=== PATIENT | female | born 1985 | race Caucasian/White ===

== ENCOUNTER → 2020-01-20 | Outpatient (CLI) | payer BC ==
[~2020-01-20] MED LIST: ACHD5005 PO; ASCO500C15 PO; BC PILL PO; CALC500T7 PO; DCS100C PO; DOCU100C37 PO; FERR325T18 PO; HYDR-4226 PO; HYDR-4227 PO; IBP600T1 PO; IBUP-1773 PO; LRT10T PO; MULT-1136 PO; NORG1TAB14 PO; ONDA4TAB11 PO; ONDN4T PO; PREN-115 PO
--- NOTE | 2020-01-20 08:41 | Diagnostic Imaging Report ---
PROCEDURE: US Gallbladder. TECHNIQUE: Multiple real-time grayscale images were obtained over the right upper quadrant in various projections. INDICATION: Right upper quadrant pain. FINDINGS: The liver is slightly enlarged at 18.3 cm. No discrete liver mass is detected. The portal vein is patent and shows normal direction of flow. The gallbladder does appear to be contracted. There are multiple stones within the gallbladder. No wall thickening or biliary ductal dilatation is identified. Pancreas unremarkable. Aorta is nonaneurysmal. IVC is patent. The right kidney is without calculi or hydronephrosis. There is no ascites. IMPRESSION: 1. Mild hepatomegaly. 2. Cholelithiasis without evidence of acute cholecystitis. Dictated by: Dictated on workstation # [id number]
== END ==
LOC: RAD 07:35
PROVIDERS: ATTEND Nurse Practitioner Family
DX: K80.20 Calculus of gallbladder without cholecystitis without obstruction (principal); R16.0 Hepatomegaly, not elsewhere classified
CPT/HCPCS: 76705

== ENCOUNTER 2020-01-21 14:19 | Emergency (ER) | payer BC ==
[~2020-01-21] VITALS: Ht 162.6 cm; Wt 75.0 kg
[~2020-01-21 14:19] MED LIST changes: -HYDR-4226 PO; -HYDR-4227 PO; -MULT-1136 PO; -NORG1TAB14 PO; -ONDA4TAB11 PO; -ONDN4T PO
[2020-01-21] MEDS ORDERED: LACTATED RINGERS 1,000 ML IV STA (15:08)
[2020-01-21] MEDS ORDERED: KETOROLAC 30 MG/ML VIAL IVP STA (15:08)
[2020-01-21] MEDS ORDERED: fentaNYL INJECTION 100 MCG/2 ML AMP IVP STA ×2 (15:08→15:58)
[2020-01-21] MEDS ORDERED: ONDANSETRON 4 MG/2 ML (SDV) Z0FRAN IVP ONE ×2 (15:15→16:30)
--- NOTE | 2020-01-21 15:16 | ED General ---
General Chief Complaint: General Problems/Pain Stated Complaint: DIZZY / N/V HEADACHE Source of Information: Patient Exam Limitations: No Limitations History of Present Illness Date Seen by Provider: January 21, 2020 Time Seen by Provider: 15:02 Initial Comments Here with report of epigastric abdominal pain associated with nausea and vomi ting as well as global headache. Has chills. Diagnosed yesterday with gallstones via ultrasound due to the abdominal pain that she's been getting recently. Unable to get into the surgeon yesterday and is being set up with a surgeon on Thursday potentially. States that the pain worsened today and was associated with nausea and vomiting and overall she feels poor. Headache came on after. Has been unable to take anything for the pain due to the vomiting. Currently on her menstrual period. Timing/Duration: 2-3 Days, Getting Worse Severity: Moderate Associated Systoms: No Chest Pain, No Cough; Headaches, Nausea/Vomiting; No Shortness of Air; Weakness Allergies and Home Medications Allergies Coded Allergies: Sulfa (Sulfonamides) (Verified Allergy, Unknown, 12/15/06) Home Medications Ascorbic Acid 500 Mg Capsule.er, 500 MG PO DAILY, (Reported) Calcium Carbonate 200 Mg Tab.chew, 200 MG PO NEEDED, (Reported) Docusate Sodium 100 Mg Capsule, 100 MG PO BID PRN for CONSTIPATION Prescribed by: ERIN RAMIREZ on 06/14/15 1041 Ferrous Sulfate 325 Mg Tablet, 325 MG PO DAILY Prescribed by: ERIN RAMIREZ on 06/14/15 1041 Hydrocodone Bit/Acetaminophen 1 Each Tablet, 1 TAB PO Q4H PRN for PAIN Prescribed by: ERIN RAMIREZ on 06/14/15 1041 Hydrocodone/Acetaminophen 1 Each Tablet, 1 TAB PO Q6H PRN for PAIN-MODERATE (5- 7) Prescribed by: CLARA BRONSON on 01/21/20 1615 Ibuprofen 600 Mg Tablet, 600 MG PO Q6H Prescribed by: ERIN RAMIREZ on 06/14/15 1041 Ondansetron 4 Mg Tab.rapdis, 4 MG PO Q6H PRN for NAUSEA/VOMITING Prescribed by: CLARA BRONSON on 01/21/20 1614 Vit #108/Iron/Fa 1 Each Tablet, 1 EACH PO DAILY, (Reported) Patient Home Medication List Home Medication List Reviewed: Yes Review of Systems Review of Systems Constitutional: see HPI, chills; No fever EENTM: no symptoms reported Respiratory: No cough, No short of breath Cardiovascular: No chest pain, No edema Gastrointestinal: RUQ, abdominal pain, nausea, vomiting Genitourinary: no symptoms reported LMP: January 21, 2020 Musculoskeletal: no symptoms reported Skin: no symptoms reported Psychiatric/Neurological: See HPI, Headache; Denies Weakness All Other Systems Reviewed Negative Unless Noted: Yes Past Fxsgnxo-Bcfmxn-Dauvvh Hx Past Med/Social Hx: Reviewed Nursing Past Med/Soc Hx Patient Social History Alcohol Use: Denies Use Recreational Drug Use: No Smoking Status: Never a Smoker Recent Foreign Travel: No Contact w/Someone Who Travel: No Immunizations Up To Date Tetanus Booster (TDap): Less than 5yrs PED Vaccines UTD: Yes Date of Influenza Vaccine: May 29, 2015 Past Medical History Surgeries: Yes (D&C) Appendectomy, Orthopedic Respiratory: No Cardiac: No Neurological: Yes Headaches /Migraines Reproductive Disorders: Yes (endometriosis) Female Reproductive Disorders: Endometriosis Sexually Transmitted Disease: No HIV/AIDS: No Genitourinary: No Gastrointestinal: No Endocrine: No HEENT: No Cancer: No Psychosocial: No Adverse Reaction/Blood Tranf: No Family Medical History Reviewed Nursing Family Hx Arthritis 19 MOTHER Hypertension 19 MOTHER Cancer Physical Exam Vital Signs Vital Signs - First Documented 01/21/20 14:52 Temp 36.6 Pulse 79 Resp 18 B/P (MAP) 143/86 (105) Pulse Ox 100 O2 Delivery Room Air Capillary Refill : Height, Weight, BMI Height: 5'4.00" Weight: 185lbs. oz. 83.258246hl; BMI Method: General Appearance: WD/WN, Mild Distress HEENT: PERRL/EOMI, TMs Normal, Pharynx Normal Neck: Non Tender, Supple Respiratory: Lungs Clear, Normal Breath Sounds Cardiovascular: No Murmur, Tachycardia Gastrointestinal: Soft, Tenderness (epigastric and right upper quadrant) Back: Normal Inspection, No CVA Tenderness, No Vertebral Tenderness Extremity: Normal Range of Motion, Non Tender Neurologic/Psychiatric: Alert, Oriented x3 Skin: Normal Color, Warm/Dry Progress/Results/Core Measures Suspected Sepsis SIRS Temperature: Pulse: Respiratory Rate: Laboratory Tests 01/21/20 15:00: White Blood Count 6.1 Blood Pressure / Mean: Laboratory Tests 01/21/20 15:00: Creatinine 0.78, Platelet Count 247, Total Bilirubin 0.4 Results/Orders Lab Results Laboratory Tests Test 01/21/20 15:00 01/21/20 16:15 01/21/20 16:55 Range/Units White Blood Count 6.1 4.3-11.0 10^3/uL Red Blood Count 4.46 4.35-5.85 10^6/uL Hemoglobin 14.7 11.5-16.0 G/DL Hematocrit 43 35-52 % Mean Corpuscular Volume 96 80-99 FL Mean Corpuscular Hemoglobin 33 25-34 PG Mean Corpuscular Hemoglobin Concent 34 32-36 G/DL Red Cell Distribution Width 11.6 10.0-14.5 % Platelet Count 247 130-400 10^3/uL Mean Platelet Volume 10.0 7.4-10.4 FL Neutrophils (%) (Auto) 69 42-75 % Lymphocytes (%) (Auto) 24 12-44 % Monocytes (%) (Auto) 6 0-12 % Eosinophils (%) (Auto) 1 0-10 % Basophils (%) (Auto) 0 0-10 % Neutrophils # (Auto) 4.2 1.8-7.8 X 10^3 Lymphocytes # (Auto) 1.5 1.0-4.0 X 10^3 Monocytes # (Auto) 0.3 0.0-1.0 X 10^3 Eosinophils # (Auto) 0.1 0.0-0.3 10^3/uL Basophils # (Auto) 0.0 0.0-0.1 10^3/uL Sodium Level 139 135-145 MMOL/L Potassium Level 3.7 3.6-5.0 MMOL/L Chloride Level 105 98-107 MMOL/L Carbon Dioxide Level 25 21-32 MMOL/L Anion Gap 9 5-14 MMOL/L Blood Urea Nitrogen 8 7-18 MG/DL Creatinine 0.78 0.60-1.30 MG/DL Estimat Glomerular Filtration Rate > 60 BUN/Creatinine Ratio 10 Glucose Level 96 70-105 MG/DL Calcium Level 9.2 8.5-10.1 MG/DL Corrected Calcium 9.0 8.5-10.1 MG/DL Total Bilirubin 0.4 0.1-1.0 MG/DL Aspartate Amino Transf (AST/SGOT) 24 5-34 U/L Alanine Aminotransferase (ALT/SGPT) 32 0-55 U/L Alkaline Phosphatase 36 L 40-136 U/L C-Reactive Protein High Sensitivity 0.39 0.00-0.50 MG/DL Total Protein 7.6 6.4-8.2 GM/DL Albumin 4.2 3.2-4.5 GM/DL Serum Test, Qualitative NEGATIVE NEGATIVE Urine Color YELLOW Urine Clarity CLEAR Urine pH 7.0 5-9 Urine Specific [place] <=1.005 1.016-1.022 Urine Protein NEGATIVE NEGATIVE Urine Glucose (UA) NEGATIVE NEGATIVE Urine Ketones NEGATIVE NEGATIVE Urine Nitrite NEGATIVE NEGATIVE Urine Bilirubin NEGATIVE NEGATIVE Urine Urobilinogen 0.2 < = 1.0 MG/DL Urine Leukocyte Esterase NEGATIVE NEGATIVE Urine RBC (Auto) 1+ H NEGATIVE Urine RBC NONE /HPF Urine WBC NONE /HPF Urine Squamous Epithelial Cells 0-2 /HPF Urine Crystals NONE /LPF Urine Bacteria NEGATIVE /HPF Urine Casts NONE /LPF Urine Mucus NEGATIVE /LPF Urine Culture Indicated NO My Orders Orders - CLARA BRONSON MD Cbc With Automated Diff (01/21/20 15:08) Comprehensive Metabolic Panel (01/21/20 15:08) Hs C Reactive Protein (01/21/20 15:08) Ua Culture If Indicated (01/21/20 15:08) Ondansetron Injection (Zofran Injectio (01/21/20 15:15) Lactated Ringers (Lr 1000 Ml Iv Solution (01/21/20 15:08) Ed Iv/Invasive Line Start (01/21/20 15:08) Fentanyl Injection (Sublimaze Injection (01/21/20 15:08) Ketorolac Injection (Toradol Injection) (01/21/20 15:08) Hcg,Qualitative Serum (01/21/20 15:10) Fentanyl Injection (Sublimaze Injection (01/21/20 15:58) Coronavirus Sars-Cov-2 So 2018 (01/21/20 16:11) Ondansetron Injection (Zofran Injectio (01/21/20 16:30) Promethazine Injection (Phenergan Injec (01/21/20 16:29) Medications Given in ED Current Medications Medications Dose Ordered Sig/Fabby Route Start Time Stop Time Status Last Admin Dose Admin Ondansetron HCl 4 mg ONCE ONCE IVP 01/21/20 15:15 01/21/20 15:16 DC 01/21/20 15:19 4 MG Ondansetron HCl 4 mg ONCE ONCE IVP 01/21/20 16:30 01/21/20 16:31 DC 01/21/20 16:27 4 MG Vital Signs/I&O 01/21/20 14:52 Temp 36.6 Pulse 79 Resp 18 B/P (MAP) 143/86 (105) Pulse Ox 100 O2 Delivery Room Air Capillary Refill : Progress Note : Progress Note Seen and evaluated. IV, labs, UA, LR 1 L bolus, Zofran 4 mg IV, Toradol 30 mg IV, fentanyl 50 g IV ordered. Reviewed ultrasound from yesterday which is copied into the note for information purposes. Monitor patient. 1615: Patient labs reviewed. No significant acute findings currently. She is doing better. Fentanyl 2 g IV repeated for mild continuation of pain. I did discuss the case with Dr. Mon. He would like to see her Thursday at 2 PM for surgery on Thursday. We went ahead and did the COVID screening swab in anticipation of surgery on Thursday. She has no findings or concerns of COVID-19 and no laboratory indication of COVID-19. 1834: Overall feeling a little better. She did get Phenergan 25 mg IV which has helped. She would just like to go home now if po ssible. She was instructed to return if there is any worsening. I still don't think she feels great but I think she is tolerable at this point. Discharged home with return precautions. Patient verbalize understanding instructions and agreement with plan. I did offer to talk to Dr. Mon again and she states that she would prefer to go home if there is nothing that was given to be done tonight. There would not be other than admission for comfort so we will discharge her home per her request. Diagnostic Imaging Diagonstic Imaging: Ultrasound Plain Films/CT/US/NM/MRI: other Comments Ultrasound done 01/20/20. Inserted for information purposes. [facility]. [place], [place] NAME: VEE PATTON [facility] REC#: [id number] PT STATUS: REG CLI : 1985 PHYSICIAN: TIASHA VILLA ADMIT DATE: 01/20/20/RAD Signed Date of Exam:01/20/20 US GALLBLADDER [id number] PROCEDURE: US Gallbladder. TECHNIQUE: Multiple real-time grayscale images were obtained over the right upper quadrant in various projections. INDICATION: Right upper quadrant pain. FINDINGS: The liver is slightly enlarged at 18.3 cm. No discrete liver mass is detected. The portal vein is patent and shows normal direction of flow. The gallbladder does appear to be contracted. There are multiple stones within the gallbladder. No wall thickening or biliary ductal dilatation is identified. Pancreas unremarkable. Aorta is nonaneurysmal. IVC is patent. The right kidney is without calculi or hydronephrosis. There is no ascites. IMPRESSION: 1. Mild hepatomegaly. 2. Cholelithiasis without evidence of acute cholecystitis. Dictated by: Dictated on workstation # [id number] Dict: 01/20/20 0833 Trans: 01/20/20 1554 [id number] Interpreted by: ERICA MAJOR MD Electronically signed by: ERICA MAJOR MD 01/20/20 1554 Departure Impression Primary Impression: Cholelithiasis Qualified Codes: K80.20 - Calculus of gallbladder without cholecystitis without obstruction Additional Impression: Migraine headache Qualified Codes: G43.009 - Migraine without aura, not intractable, without status migrainosus Disposition: 01 HOME, SELF-CARE Condition: Stable Departure-Patient Inst. Decision time for Depature: 18:36 Referrals: LIZZIE TALAVERA MD (PCP/Family) Primary Care Physician SANGEETA MON MD Patient Instructions: Gallstones (DC), Migraines (DC) Add. Discharge Instructions: All discharge instructions reviewed with patient and/or family. Voiced understanding. Continue home medications as previously prescribed but do not take your headache control medicine with the prescribed pain medicine as they both have narcotics in them. Clear liquid diet for the next 24-48 hours and then as per instructed by Dr. Mon. See him in his office on Thursday at 2 PM. A copy of your chart was sent to him. Follow-up with your DrChen on Thursday as needed. Return for worse pain, fever, persistent vomiting, weakness or other concerns as needed. Scripts Ondansetron (Ondansetron Odt) 4 Mg Tab.rapdis 4 MG PO Q6H PRN for NAUSEA/VOMITING, #12 TAB 0 Refills Prov: CLARA BRONSON MD 01/21/20 Hydrocodone/Acetaminophen (Hydrocodone/Acetaminophen 5 MG/325 MG TAB) 1 Each Tablet 1 TAB PO Q6H PRN for PAIN-MODERATE (5-7) MDD 10 TABS for 7 Days, #8 TAB 0 Refil ls Prov: CLARA BRONSON MD 01/21/20 Copy Copies To 1: SANGEETA MON MD Copies To 2: LIZZIE TALAVERA MD, TIMOTHY D MD January 21, 2020 15:16
[2020-01-21 15:17] LABS: BASOPHILS % (AUTO) 0 % (0-10); EOSINOPHILS # (AUTO) 0.1 10^3/uL (0.0-0.3); EOSINOPHILS % (AUTO) 1 % (0-10); HEMATOCRIT 43 % (35-52); HEMOGLOBIN 14.7 G/DL (11.5-16.0); LYMPHOCYTES # (AUTO) 1.5 X 10^3 (1.0-4.0); LYMPHOCYTES % (AUTO) 24 % (12-44); MEAN CORPUSCULAR HEMOGLOBIN 33 PG (25-34); MEAN CORPUSCULAR HGB CONC 34 G/DL (32-36); MEAN CORPUSCULAR VOLUME 96 FL (80-99); MONOCYTES # (AUTO) 0.3 X 10^3 (0.0-1.0); MONOCYTES % (AUTO) 6 % (0-12); NEUTROPHILS # (AUTO) 4.2 X 10^3 (1.8-7.8); NEUTROPHILS % (AUTO) 69 % (42-75); PLATELET COUNT 247 10^3/uL (130-400); RED CELL DISTRIBUTION WIDTH 11.6 % (10.0-14.5); WHITE BLOOD COUNT 6.1 10^3/uL (4.3-11.0)
[2020-01-21 15:40] LABS: ALBUMIN 4.2 GM/DL (3.2-4.5); CHLORIDE 105 MMOL/L (98-107); POTASSIUM 3.7 MMOL/L (3.6-5.0); SODIUM 139 MMOL/L (135-145)
[2020-01-21 15:41] LABS: CALCIUM 9.2 MG/DL (8.5-10.1)
[2020-01-21 15:43] LABS: GLUCOSE 96 MG/DL (70-105); TOTAL PROTEIN 7.6 GM/DL (6.4-8.2)
[2020-01-21 15:44] LABS: BILIRUBIN,TOTAL 0.4 MG/DL (0.1-1.0); CARBON DIOXIDE 25 MMOL/L (21-32)
[2020-01-21 15:46] LABS: ALKALINE PHOSPHATASE 36 U/L (40-136); CREATININE SERUM 0.78 MG/DL (0.60-1.30); GFR ESTIMATED > 60
[2020-01-21 15:47] LABS: BUN/CREATININE RATIO 10
[2020-01-21 15:49] LABS: ALANINE AMINOTRANSFERASE 32 U/L (0-55)
[2020-01-21] MEDS ORDERED: HYDR-4226 PO (16:14)
[2020-01-21] MEDS ORDERED: ONDA4TAB11 PO (16:14)
--- NOTE | 2020-01-21 16:20 | NUR ---
COVID-19 SWAB OBTAINED BY THIS RN @ 0508. SPECIMEN WALKED TO LAB BY MICHAEL FLETCHER @ 4508.
[2020-01-21] MEDS ORDERED: PROMETHAZINE INJ 25 MG/ML (PHENERGAN) AMP IVP STA (16:29)
[2020-01-21 17:07] LABS: BILIRUBIN,URINE NEGATIVE (NEGATIVE); CLARITY,URINE CLEAR; COLOR,URINE YELLOW; GLUCOSE, URINE (UA) NEGATIVE (NEGATIVE); KETONES,URINE NEGATIVE (NEGATIVE); LEUKOCYTE ESTERASE ,URINE NEGATIVE (NEGATIVE); NITRITE,URINE NEGATIVE (NEGATIVE); PROTEIN,URINE NEGATIVE (NEGATIVE)
[2020-01-21 17:23] LABS: BACTERIA,URINE NEGATIVE /HPF; SQUAMOUS EPITHELIAL CELL,UR 0-2 /HPF
[2020-01-21 18:45] VITALS: BP 113/82
== END 2020-01-21 18:45 | disposition home or self-care (01) ==
LOC: EDUNIT# 14:19 → ER 14:20
DX: K80.20 Calculus of gallbladder without cholecystitis without obstruction (principal); G43.909 Migraine, unspecified, not intractable, without status migrainosus; Z88.2 Allergy status to sulfonamides; Z82.49 Family history of ischemic heart disease and other diseases of the circulatory system
CPT/HCPCS: 36415; 80053; 81000; 84703; 85025; 86141; 87635; 96361; 96374; 96375; 96376

== ENCOUNTER 2020-01-23 14:33 | Outpatient (RCR) | payer BC ==
[~2020-01-23] VITALS: Ht 162 cm; Wt 70.4 kg
[~2020-01-23 14:33] MED LIST changes: +HYDR-4226 PO; +ONDA4TAB11 PO
[2020-01-23] MEDS ORDERED: MULT-1136 PO (14:57)
[2020-01-23] MEDS ORDERED: NORG1TAB14 PO (14:57)
[2020-01-24] MEDS ORDERED: ONDN4T PO (09:15)
[2020-01-24] MEDS ORDERED: HYDR-4227 PO (09:16)
== END 2020-04-22 | disposition home or self-care (01) ==
LOC: PREOP 14:33
PROVIDERS: ATTEND Surgery
DX: Z01.818 Encounter for other preprocedural examination (principal); K80.20 Calculus of gallbladder without cholecystitis without obstruction

== ENCOUNTER 2021-07-09 05:41 | Outpatient (CLI) | payer BC ==
[~2021-07-09] VITALS: Ht 165.1 cm; Wt 68.0 kg
[~2021-07-09 05:41] MED LIST changes: -ASCO500C15 PO; +ASCO500C18 PO; +HYDR-4227 PO; +MULT-1136 PO; +NORG1TAB14 PO; +ONDN4T PO
[2021-07-09] MEDS ORDERED: VITAMIN D3 PO (13:44)
[2021-07-09] MEDS ORDERED: ASCO500T7 PO (13:44)
[2021-07-09] MEDS ORDERED: PROBIOTIC PO (13:44)
[2021-07-16] MEDS ORDERED: SENN1TAB76 PO (13:14)
[2021-07-16] MEDS ORDERED: OXC5T PO (13:14)
[2021-07-16] MEDS ORDERED: IBUP-844 PO (13:14)
[2021-07-16] MEDS ORDERED: SMT80CT PO (13:14)
[2021-07-16] MEDS ORDERED: ACET-93 PO (13:14)
== END 2021-07-09 14:01 | disposition home or self-care (01) ==
LOC: PREOP 05:41
PROVIDERS: ATTEND Obstetrics & Gynecology
DX: Z01.818 Encounter for other preprocedural examination (principal)

== ENCOUNTER 2021-07-16 08:00 | Day surgery (SDC) | payer BC ==
[2021-07-16] VITALS (14 sets, daily range): BP systolic 97–140; BP diastolic 58–92
[~2021-07-16] VITALS: Ht 165.1 cm; Wt 68.0 kg
[~2021-07-16 08:00] MED LIST changes: +ASCO500T7 PO; +PROBIOTIC PO; +VITAMIN D3 PO
[2021-07-16] MEDS ORDERED: ROCURONIUM 10 MG/ML 5 ML SYRINGE IV ONE (08:14)
[2021-07-16] MEDS ORDERED: ONDANSETRON 4 MG/2 ML (SDV) Z0FRAN ONE ×3 (08:14→12:12)
[2021-07-16] MEDS ORDERED: fentaNYL INJ 100 MCG/2 ML AMP ONE (08:14)
[2021-07-16] MEDS ORDERED: NEOSTIGMINE 3 MG/3 ML VIAL ONE (08:14)
[2021-07-16] MEDS ORDERED: GLYCOPYRROLATE 0.2 MG/ML (ROBINUL) 2 ML VIAL ONE (08:14)
[2021-07-16] MEDS ORDERED: LIDOCAINE PF 2% 5 ML (XYLOCAINE) VIAL ONE (08:14)
[2021-07-16] MEDS ORDERED: MIDAZOLAM 2 MG/2 ML (VERSED) VIAL ONE (08:14)
[2021-07-16] MEDS ORDERED: proPOfol 200 MG/20 ML (DIPRIVAN) VIAL IV ONE (08:14)
[2021-07-16] MEDS ORDERED: ceFAZolin 2 GM IV Premixed 50 ML IV ONE (08:15)
[2021-07-16] MEDS ORDERED: ONDANSETRON 4 MG/2 ML (SDV) Z0FRAN IV ONE (08:45)
[2021-07-16] MEDS ORDERED: MIDAZOLAM 2 MG/2 ML (VERSED) VIAL IV ONE (08:45)
[2021-07-16] MEDS ORDERED: SCOPOLAMINE 1.5 MG (TRANSDERM-SCOP) PATCH TOP ONE (08:45)
[2021-07-16] MEDS ORDERED: FAMOTIDINE 20MG/2ML IV (PEPCID) IV ONE (08:45)
[2021-07-16 08:52] LABS: CLARITY,URINE SL CLOUDY; COLOR,URINE YELLOW; GLUCOSE, URINE (UA) NEGATIVE (NEGATIVE); KETONES,URINE 1+ (NEGATIVE); LEUKOCYTE ESTERASE ,URINE 1+ (NEGATIVE); NITRITE,URINE NEGATIVE (NEGATIVE); PH,URINE 5.5 (5-9); PROTEIN,URINE TRACE (NEGATIVE)
[2021-07-16] MEDS ORDERED: LIDOCAINE/EPI 1%-1:100,000 (XYLOCAINE) 20ML ONE (08:52)
[2021-07-16 08:58] LABS: BASOPHILS % (AUTO) 1 % (0-10); EOSINOPHILS # (AUTO) 0.1 10^3/uL (0.0-0.3); EOSINOPHILS % (AUTO) 3 % (0-10); HEMATOCRIT 42 % (35-52); HEMOGLOBIN 14.3 g/dL (11.5-16.0); LYMPHOCYTES # (AUTO) 1.7 10^3/uL (1.0-4.0); LYMPHOCYTES % (AUTO) 36 % (12-44); MEAN CORPUSCULAR HEMOGLOBIN 33 pg (25-34); MEAN CORPUSCULAR HGB CONC 34 g/dL (32-36); MEAN CORPUSCULAR VOLUME 96 fL (80-99); MONOCYTES # (AUTO) 0.3 10^3/uL (0.0-1.0); MONOCYTES % (AUTO) 6 % (0-12); NEUTROPHILS # (AUTO) 2.7 10^3/uL (1.8-7.8); NEUTROPHILS % (AUTO) 55 % (42-75); PLATELET COUNT 214 10^3/uL (130-400); WHITE BLOOD COUNT 4.9 10^3/uL (4.3-11.0)
[2021-07-16] MEDS: LACTATED RINGERS 1,000 ML IV PRN ×2 (08:58→10:00)
[2021-07-16] MEDS ORDERED: FAMOTIDINE 20MG/2ML IV (PEPCID) ONE (09:02)
[2021-07-16] MEDS ORDERED: SCOPOLAMINE 1.5 MG (TRANSDERM-SCOP) PATCH ONE (09:04)
[2021-07-16 09:10] LABS: BACTERIA,URINE MODERATE /HPF; BILIRUBIN,URINE 1+ (NEGATIVE); RBC,URINE 0-2 /HPF
--- NOTE | 2021-07-16 09:32 | Progress Note-Pre Operative ---
Pre-Operative Progress Note H&P Reviewed The H&P was reviewed, patient examined and no changes noted. Date Seen by Provider: Jul 16, 2021 Time Seen by Provider: 09:20 Date H&P Reviewed: Jul 16, 2021 Time H&P Reviewed: 09:15 Pre-Operative Diagnosis: ABNORMAL UTERINE BLEEDING, CERVICAL DYSPLASIA ODALYS CH DO Jul 16, 2021 09:32
[2021-07-16] MEDS ORDERED: KETOROLAC 30 MG/ML VIAL ONE (11:06)
[2021-07-16] MEDS ORDERED: HYDROmorphone 2 MG/ML VIAL (DILAUDID) ONE (11:52)
[2021-07-16] MEDS ORDERED: LACTATED RINGERS 1,000 ML IV SCH (13:00)
[2021-07-16] MEDS ORDERED: NALOXONE 0.4 MG/ML 1 ML (NARCAN) VIAL IV PRN (13:00)
[2021-07-16] MEDS ORDERED: morphine INJ 4 MG/ML 1 ML (VIAL/SYRINGE) IV PRN (13:00)
[2021-07-16] MEDS ORDERED: ONDANSETRON 4 MG (ZOFRAN) ORAL DISSOLVE TAB PO PRN (13:00)
[2021-07-16] MEDS ORDERED: CHLORASEPTIC LOZENGE MM PRN (13:00)
--- NOTE | 2021-07-16 13:05 | Operative Report ---
Operative Report Date of Procedure/Surgery Jul 16, 2021 Surgeon (s) ODALYS CH DO Criminal Court Judge (s): NA Post-Operative Diagnosis same Procedure Performed RaTH, bilateral salpingectomy, lysis of adhesions Description of Procedure Anesthesia Type: General Estimated blood loss (mL): 50 Specimen(s) collected/removed uterus and tubes Description of the Procedure After informed consent was obtained, patient was taken into the operating room where general anesthetic was found to be adequate. She was prepped and draped in the usual sterile fashion in the dorsal lithotomy position. A Alarcon catheter was placed. A speculum was placed in the vagina. The cervix was visualized and the anterior lip was grasped with a sharp toothed tenaculum. The uterus was sounded and depth was approximately 8 centimeters. I placed the Kellie device (8 cm) and a 3.0 cm collar was advanced over the cervix. I inserted the Kellie without difficulty, inflating the balloon and securing it around the fornix of the cervix. The collar was then secured with sutures at 12 o'clock. Attention was then turned to the patient's abdomen. A supraumbilical incision was made about 8 mm after injecting with 0.25% Marcaine. A Veress needle was inserted and I confirmed intraabdominal placement with a drop in pressure and the saline drop test. The opening pressure was 7 mmHg. I then insufflated the abdomen to a maximum of 15 mmHg with warmed CO2 gas. I placed an additional 8 mm trocar in the left abdomen lateral to the umbilicus approximately 15 cm. The second robotic port was placed about 12 cm lateral to the right of the umbilical placement. This was an 8 mm trocar. These were placed under direct visualization of the laparoscope. 0.25% Marcaine was injected prior to placement of all trocars. When all placements were confirmed, the patient was placed in steep Trendelenburg allowing adequate visualization and the robot was brought in for docking. The docking was accomplished without difficulty. I then took over the command of the robot utilizing the synchroseal and monopolar brad. I was able to visualize the round ligaments bilaterally and grasped them and cauterized with bipolar cautery and then cut with my brad. At this point, I then did bilateral salpingectomy. There were adhesions of the right tube and ovary and I had to take these down prior to performing the salpingectomy. Then, I incised the mesosalpinx with the brad. Then, I grasped with cornu and transected bilaterally using the synchroseal at the uterine ovarian ligament. I then moved my dissection to the posterior leaves of the broad ligament. I dissected the posterior leaves of the broad ligament off the uterine arteries skeletonizing them bilaterally. I then took a second clamp with the bipolar cautery and with the brad, transected the vessels away from the lateral aspect to the cervical stroma. I dissected the anterior peritoneum off the lower uterine segment. I continually pushed the bladder back and I took excessively great care and I was eventually able to dissect the vesicouterine peritoneum off the lower uterine segment. I then dissected in a V fashion towards the midline between the uterosacral ligaments. This allowed me to skeletonize the uterine vessels bilaterally. The balloon on the KELLIE was insufflated. This allowed me to see the KELLIE circumferentially. I then performed a colpotomy anteriorly and then amputate with cervix away from the vaginal fornix. I then continued the colpotomy circumferentially. Once this was performed, the diploma medical assistant removed the uterus and tubes through the vagina. She then left a sponge in the vagina to maintain the pneumoperitoneum. . I then began closure of the vaginal cuff. I closed the apices of the vaginal cuff with 2-0 Vicryl V lock sutures with a colposuspension through the uterosacral ligaments. This suspended the apices of the vaginal cuff. I extended this to the midline from both sides and overlapped the V lock sutures in the midline. Excellent closure is noted and hemostasis is achieved. Now, the robotic instruments were removed and the robot was docked back to laparoscopy. The pelvis was irrigated. There was no active bleeding noted. Bilateral ureters were seen the entire time during the surgery and were peristalsing. There was no excessive bleeding noted. The trocars were removed under direct visualization. The laparoscopic sites were visualized and found to be hemostatic. The trocar sites were injected with 0.25% Marcaine. The skin incisions were closed with 4-0 Monocryl in a subcuticular fashion and then with Dermabond. Op sites were placed over the incision sites. The instruments were removed from the vagina and I noted there were no abrasions. Sponge, lap, needle and instrument counts correct times two. Patient was awakened and taken to recovery in a stable condition. Findings of the Procedure uterus was slightly boggy with a suspected fibroid adhesion of the right tube to the right ovary Allergies and Home Medications Allergies Coded Allergies: Sulfa (Sulfonamide Antibiotics) (Verified Allergy, Mild, RASH, 07/09/21) Patient Home Medication List Home Medication List Reviewed: Yes Acetaminophen (Acetaminophen) 500 Mg Tablet, 1,000 MG PO Q8HR Prescribed by: ODALYS CH on 07/16/21 1314 Ascorbic Acid (Ascorbic Acid) 500 Mg Tablet, 500 MG PO DAILY, (Reported) Entered as Reported by: NICOLE SOW on 07/09/211343 Last Action: Last Taken Edited Ibuprofen (Ibu) 600 Mg Tablet, 600 MG PO Q6HR Prescribed by: ODALYS CH on 07/16/211313 Multivitamin (Multivitamin) 1 Each Tablet, 1 EACH PO DAILY, (Reported) Entered as Reported by: CELSO KHAN on 01/23/201456 Last Action: Last Taken Edited Oxycodone Hcl (Oxyir Tablet) 5 Mg Tab, 5 MG PO Q4HR PRN for PAIN-SEE DOSE INSTRUCTIONS Prescribed by: ODALYS CH on 07/16/21 131 Sennosides/Docusate Sodium (Stool Softener-Laxative Tablet) 1 Each Tablet, 2 EA PO HS Prescribed by: ODALYS CH on 07/16/21 1314 Simethicone (Mi-Acid) 80 Mg Tab.chew, 80 MG PO PCHS Prescribed by: ODALYS CH on 07/16/21 1314 [Probiotic] , 1 EA PO DAILY, (Reported) Entered as Reported by: NICOLE SOW on 07/09/211343 Last Action: Last Taken Edited [Vitamin D3] , 1 EA PO DAILY, (Reported) Entered as Reported by: NICOLE SOW on 07/09/211343 Last Action: Last Taken Edited Discontinued Medications Norgestimate-Ethinyl Estradiol (Sprintec 28 Day Tablet) 1 Each Tablet, 1 EACH PO DAILY, (Reported) Entered as Reported by: CELSO KHAN on 01/23/201456 Last Action: Last Taken Edited ODALYS CH DO Jul 16, 2021 13:05
[2021-07-16] MEDS ORDERED: OXC5T PO (13:14)
[2021-07-16] MEDS ORDERED: IBUP-844 PO (13:14)
[2021-07-16] MEDS ORDERED: SMT80CT PO (13:14)
[2021-07-16] MEDS ORDERED: SENN1TAB76 PO (13:14)
[2021-07-16] MEDS ORDERED: ACET-93 PO (13:14)
--- NOTE | 2021-07-16 13:16 | Discharge Inst-Women's Service ---
Discharge Inst-Women's Serv Depart Medication/Instructions New, Converted or Re-Newed RX: Transmitted to Pharmacy Final Diagnosis abnormal uterine bleeding history of cervical dysplasia Problems Reviewed?: Yes Consults/Follow Up Additional Follow Up: Yes (1-2 week with carlos alberto for incision check. 8 weeks for pelvic exam with Karl) Activity Activity: Activity as Tolerated Driving Instructions: No Driving for 1 Week NO SMOKING: NO SMOKING Nothing Inside Vagina: No Douching, No [place], No Tampons Diet Discharge Diet: No Restrictions Symptoms to Report to : Bleeding Excessive, Pain Increased, Constipation (Persistant), Fever Over 101 Degrees F, Vaginal Bleeding Increase, Cramps in Feet or Legs, Vaginal Discharge Foul For Any Problems or Questions: Contact Your Physician Skin/Wound Care Infection Signs and Symptoms: Increased Redness, Foul Odor of Wound, Increased Drainage, Skin Itchy or Has a Rash, Increased Swelling, Temperature Above 101 F Operative Area Clean and Dry: You May Remove Bandage (Thursday) Stitches/Barbara/Dermabond: Dermabond Bathing Instructions: ODALYS Motley DO Jul 16, 2021 13:16
[2021-07-16] MEDS ORDERED: morphine INJ 4 MG/ML 1 ML (VIAL/SYRINGE) ONE (13:41)
[2021-07-16] MEDS ORDERED: ACETAMINOPHEN 500 MG TAB (TYLENOL) ONE (13:41)
[2021-07-16] MEDS: ACETAMINOPHEN 500 MG TAB (TYLENOL) PO SCH ×2 (13:52→23:39)
[2021-07-16] MEDS: SIMETHICONE 80 MG (MYLICON) CHEW PO SCH (16:54)
[2021-07-16] MEDS: KETOROLAC 30 MG/ML VIAL IV SCH ×2 (16:56→23:39)
[2021-07-16] MEDS ORDERED: morphine INJ 4 MG/ML 1 ML (VIAL/SYRINGE) IVP ONE (17:00)
[2021-07-16] MEDS ORDERED: traZODone 50 MG (DESYREL) TAB PO SCH (21:00)
[2021-07-16] MEDS ORDERED: SENNA W/DOCUSATE (SENOKOT S) TABLET PO SCH (21:00)
[2021-07-17 02:45] VITALS: BP 103/61
[2021-07-17] MEDS: KETOROLAC 30 MG/ML VIAL IV SCH (06:10)
[2021-07-17] MEDS: ACETAMINOPHEN 500 MG TAB (TYLENOL) PO SCH (08:27)
[2021-07-17 08:30] VITALS: BP 106/64
[2021-07-17] MEDS: SIMETHICONE 80 MG (MYLICON) CHEW PO SCH (08:31)
--- NOTE | 2021-07-17 13:43 | Anesthesia-General Post-Op ---
General Patient Condition Mental Status/LOC: Same as Preop Cardiovascular: Satisfactory Nausea/Vomiting: Absent Respiratory: Satisfactory Pain: Controlled Complications: Absent Post Op Complications Complications None Follow Up Care/Instructions Patient Instructions None needed. Anesthesia/Patient Condition Patient Condition Patient is already discharged to home but she was doing well, no complaints, stable vital signs, no apparent adverse anesthesia problems prior to her discharge. VINAY ELIAS DO Jul 17, 2021 13:43
[2021-07-17] MEDS ORDERED: IBUPROFEN 600 MG (MOTRIN) TAB PO SCH (18:00)
== END 2021-07-17 11:50 ==
LOC: SDC 08:00 → WS 12:25 → SDC 07-17 11:50
PROVIDERS: ATTEND Obstetrics & Gynecology
DX: D25.1 Intramural leiomyoma of uterus (principal); D25.2 Subserosal leiomyoma of uterus; N85.8 Other specified noninflammatory disorders of uterus; N73.6 Female pelvic peritoneal adhesions (postinfective); N93.9 Abnormal uterine and vaginal bleeding, unspecified; K21.9 Gastro-esophageal reflux disease without esophagitis; G43.909 Migraine, unspecified, not intractable, without status migrainosus; F32.A Depression, unspecified; F41.9 Anxiety disorder, unspecified; Z79.891 Long term (current) use of opiate analgesic; Z79.899 Other long term (current) drug therapy; Z87.410 Personal history of cervical dysplasia; Z98.890 Other specified postprocedural states
CPT/HCPCS: 36415; 81000; 85025; 86850; 86900; 86901; 87081; 87088; 88307